=== PATIENT | male | born 1985 | race Caucasian/White ===

== ENCOUNTER 2017-11-28 14:45 | Emergency (ER) | payer SELFPAY ==
[2017-11-28 15:26] VITALS: BP 119/56
--- NOTE | 2017-11-28 15:51 | UC ---
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 - History of Current Complaint Chief Complaint: UCLowerExtremity Stated Complaint: LEFT FOOT INJURY(1 WEEK AGO) Time Seen by Provider: 11/28/17 15:45 Hx Obtained From: Patient Onset/Duration: Gradual Onset, Lasting Weeks, Still Present, Worse Since - today Pain Intensity: 0 Pain Scale Used: 0-10 Numeric Aggravating Factor(s): Standing, Ambulation Alleviating Factor(s): Nothing Able to Bear Weight: Yes - with pain - Allergies/Home Medications Allergies/Adverse Reactions: Allergies Allergy/AdvReac Type Severity Reaction Status Date / Time morphine Allergy Vomiting Verified 11/28/17 15:16 Home Medications: Home Medications Benazepril HCl 10 mg DAILY 11/28/17 [History Confirmed 11/28/17] PMH/Surg Hx/FS Hx/Imm Hx Previously Healthy: No Cardiovascular History: Hypertension GI/ History: Gastroesophageal Reflux Psychological History: Depression - Surgical History Surgical History: Yes Surgery Procedure, Year, and Place: carpal tunnel bilateral. tonsils - Family History Known Family History: Positive: None - Social History Occupation: Unemployed Lives: With Family Alcohol Use: Occasionally Substance Use Type: None Smoking Status (MU): Never Smoked Tobacco Have You Smoked in the Last Year: No - Immunization History Most Recent Influenza Vaccination: Not the Season Most Recent Tetanus Shot: UTD Review of Systems Constitutional: Negative Skin: Negative Eyes: Negative ENT: Negative Respiratory: Negative Cardiovascular: Negative Gastrointestinal: Negative Genitourinary: Negative Motor: Negative Neurovascular: Negative Musculoskeletal: Arthralgia - left lateral foot pain Neurological: Negative Psychological: Negative Is Patient Immunocompromised?: No All Other Systems Reviewed And Are Negative: Yes Physical Exam Triage Information Reviewed: Yes Appearance: Well-Appearing, Well-Nourished, Obese Vital Signs: Initial Vital Signs Temp 97.3 F 11/28/17 15:17 Pulse 66 11/28/17 15:17 Resp 16 11/28/17 15:17 BP 119/56 11/28/17 15:17 Pulse Ox 99 11/28/17 15:17 Vital Signs Reviewed: Yes Eye Exam: Normal Eyes: Positive: Conjunctiva Clear ENT Exam: Normal ENT: Positive: Normal ENT inspection, Hearing grossly normal. Negative: Pharynx normal, Trismus, Muffled voice, Hoarse voice Dental Exam: Normal Neck exam: Normal Neck: Positive: Supple, Nontender, No Lymphadenopathy Respiratory Exam: Normal Respiratory: Positive: Chest non-tender, No respiratory distress, No accessory muscle use Cardiovascular Exam: Normal Cardiovascular: Positive: RRR, No Murmur, Pulses Normal, Brisk Capillary Refill Musculoskeletal Exam: Normal Musculoskeletal: Positive: Strength Intact, ROM Intact, No Edema Neurological Exam: Normal Neurological: Positive: Alert, Muscle Tone Normal Psychological Exam: Normal Skin Exam: Normal Diagnostics - Radiology No standard instances Xray Interpretation: No Acute Changes Radiology Interpretation Completed By: ED Physician, Radiologist - Patient Name : CHRIS QUINONES Medical Record#: [id number] Ordering Physician: Yessenia Phillips NP Acct.#: [id number] : 1985 Age: 32 Sex: M Location: [facility] Exam Date : 11/28/17 1550 ADM Status: REG ER Order Information: FOOT LEFT 3+ VWS Accession Number: [id number] CPT: 05554 INDICATION: Lateral left foot pain after rolling injury COMPARISON: None. TECHNIQUE: 3 views of the left foot were obtained. FINDINGS: The adequately corticated bones are properly aligned. Joint spaces appear maintained. No fracture, dislocation or focal bony abnormality is seen. IMPRESSION: NO RADIOGRAPHICALLY APPARENT ACUTE FRACTURE OR DISLOCATION IN THE LEFT FOOT. If the patient's symptoms persist, follow-up imaging is recommended. <Electronically signed by Rizwan Domingo MD in OV> 11/28/171648 Dictated By: Rizwan Domingo MD Dictated Date/Time: 11/28/171648 Transcribed Date/Time: 1647 Copy to: CC:Kesha Blankenship MD; Yessenia Phillips NP; Dorene DIAMOND Imaging - [facility] [address] [place] [address] ph ([phone]) ph ([phone]) ph ([phone]) This report is only to be considered final once signed by the Provider(s) as displayed in the "<Electronically Signed by > " field (s). Absence of a signature indicates the report is in a draft status and still needs to be finalized. In the event this document was created by someone other than the signing Provider, the individual initiating the document will be listed in the "Entered by:" or "Dictated by:" leiva. 1 of 1 Lower Extremity Course/Dx - Course Course Of Treatment: cam boot (patient refused crutches and post op shoe) nsaids , rice, follow with ortho if symptoms fail to resolve or worsen - Differential Dx/Diagnosis Provider Diagnoses: tendonitis left foot Discharge - Sign-Out/Discharge Documenting (check all that apply): Patient Departure All imaging exams completed and their final reports reviewed: Yes - Discharge Plan Condition: Stable Disposition: HOME Prescriptions: Ibuprofen [Ibu] 800 mg PO TID #30 tablet Patient Education Materials: Tendinitis (ED), R.I.C.E. Treatment (ED) Referrals: Cole Aguilera MD [Medical Doctor] - Dorene Miramontes PA [Primary Care Provider] - 3 Days - Billing Disposition and Condition Condition: STABLE Disposition: Home
--- NOTE | 2017-11-28 16:52 | RAD ---
INDICATION: Lateral left foot pain after rolling injury COMPARISON: None. TECHNIQUE: 3 views of the left foot were obtained. FINDINGS: The adequately corticated bones are properly aligned. Joint spaces appear maintained. No fracture, dislocation or focal bony abnormality is seen. IMPRESSION: NO RADIOGRAPHICALLY APPARENT ACUTE FRACTURE OR DISLOCATION IN THE LEFT FOOT. If the patient's symptoms persist, follow-up imaging is recommended.
== END 2017-11-28 17:29 | disposition home or self-care (01) ==
LOC: UCCORT 14:45
CPT/HCPCS: 99213; G0463

== ENCOUNTER 2018-10-20 18:11 | Emergency (ER) | payer OTHER | END 2018-10-20 18:29 | disposition left against medical advice (07) | LOC: UCCORT 18:11 | DX: S99.911A Unspecified injury of right ankle, initial encounter (principal); Z53.21 Procedure and treatment not carried out due to patient leaving prior to being seen by health care provider ==